=== PATIENT | female | born 1950 ===

== ENCOUNTER 2018-10-31 08:06 | Day surgery (SDC) | payer OTHER ==
[~2018-10-31 08:06] MED LIST: AVAPRO300 MG; CATAFLAN PO; CRESTOR PO; ECOTRIN; SYNTHROID50 MCG; VITAMINA D-3
[2018-10-31] MEDS ORDERED: ULTRACET PO (12:38)
[2018-10-31] MEDS ORDERED: KEFLEX250 MG PO (12:38)
== END 2018-10-31 14:40 | disposition home or self-care (01) ==
LOC: CIR.AMB 08:06
DX: N39.41 Urge incontinence (principal); N32.81 Overactive bladder
CPT/HCPCS: 64581; C1778

== ENCOUNTER → 2018-11-07 | Day surgery (SDC) | payer OTHER ==
[~2018-11-07] MED LIST changes: +KEFLEX250 MG PO; +ULTRACET PO
== END | disposition home or self-care (01) ==
LOC: CIR.AMB 08:15
DX: N39.41 Urge incontinence (principal); N32.81 Overactive bladder
CPT/HCPCS: 64590; C1767